=== PATIENT | female | born 2005 | race Caucasian/White ===

== ENCOUNTER 2024-12-13 23:12 | Emergency (ER) | payer OTHER ==
[2024-12-13 23:21] VITALS: BP 152/93; PULSE 104; RESP 18; TEMP 98.5; BMI 26.6
[2024-12-14] MEDS ORDERED: KETOROLAC TROMETHAMINE 60 MG/2 ML VIAL ONE (00:33)
[2024-12-14] MEDS ORDERED: ONDANSETRON 8 MG TABLET (FP) PO ONE (00:33)
[2024-12-14] MEDS: KETOROLAC TROMETHAMINE 30 MG/1 ML VIAL IVPUSH ONE (00:47)
[2024-12-14] MEDS: ONDANSETRON *ODT* 4 MG TABLET SL ONE (00:48)
[2024-12-14 00:50] LABS: THROAT:GRP A STREP NOT DETECTED (NOTDETECTED)
[2024-12-14] MEDS ORDERED: ALBUTEROL SO4 2.5/IPRATROPIUM 0.5 INH SOL 3 ML VIAL.NEB. NEB ONE (01:55)
[2024-12-14] MEDS: ALBUTEROL SO4 2.5/IPRATROPIUM 0.5 INH SOL 3 ML VIAL.NEB. NEB ONE (01:56)
[2024-12-14] MEDS ORDERED: DEXAMETHASONE SOD PHOSPHATE 10 MG/1 ML VIAL ONE (01:57)
[2024-12-14] MEDS: DEXAMETHASONE LIQUID 0.5 MG/5 ML PO ONE (02:02)
== END 2024-12-14 02:59 | disposition home or self-care (01) ==
LOC: JER 23:12
PROC: 3E0333Z Introduction of Anti-inflammatory into Peripheral Vein, Percutaneous Approach (ICD-10-PCS; principal; 2024-12-14)
PROC: 3E0F7GC Introduction of Other Therapeutic Substance into Respiratory Tract, Via Natural or Artificial Opening (ICD-10-PCS; 2024-12-14)
DX: R06.02 Shortness of breath (principal); M79.10 Myalgia, unspecified site; R50.9 Fever, unspecified; R51.9 Headache, unspecified; R05.9 Cough, unspecified; R11.0 Nausea; R07.89 Other chest pain; J02.9 Acute pharyngitis, unspecified; J06.9 Acute upper respiratory infection, unspecified
CPT/HCPCS: 0241U-QW; 87651; 99284-25; Q0162